=== PATIENT | male | born 1965 | race African-American/Black ===

== ENCOUNTER 2017-04-30 19:48 | Emergency (ER) | payer SELFPAY ==
[~2017-04-30] VITALS: Ht 188 cm; Wt 79.4 kg
[2017-04-30 23:42] VITALS: BP 136/80
[2017-04-30] MEDS ORDERED: HYDROcodone-ACET 10/325MG TAB PO ONE (23:45)
== END 2017-05-01 00:03 | disposition home or self-care (01) ==
LOC: EDBD 19:48 → ER 19:48
DX: M62.838 Other muscle spasm (principal); R42 Dizziness and giddiness; V49.9XXA Car occupant (driver) (passenger) injured in unspecified traffic accident, initial encounter; Y93.89 Activity, other specified; Y92.89 Other specified places as the place of occurrence of the external cause; Y99.8 Other external cause status
CPT/HCPCS: 70450; 71250; 72125; 74176